=== PATIENT | male | born 1955 | race Caucasian/White ===

== ENCOUNTER 2017-10-07 09:11 | Day surgery (SDC) | payer BC ==
[~2017-10-07 09:11] MED LIST: Bactrim Ds Tab1 EACH PO; CEPH500 PO; NAPR500 PO; Rapaflo8 MG PO
[2017-10-07 10:01] LABS: International Normalized Ratio 1.04; Prothrombin Time Results 10.8 Sec (9.7-11.5)
[2017-10-07 12:38] LABS: Performing Lab VERACYTE; Test Name FNA
[2017-10-10 08:55] LABS: Result SEE SEPARATE REPORT
== END 2017-10-07 23:06 | disposition home or self-care (01) ==
LOC: US 09:11
PROVIDERS: Nurse Practitioner Family; Radiology Diagnostic Radiology
PROC: 0GBH3ZX Excision of Right Thyroid Gland Lobe, Percutaneous Approach, Diagnostic (ICD-10-PCS; principal; 2017-10-07)
DX: D44.0 Neoplasm of uncertain behavior of thyroid gland (principal); E04.2 Nontoxic multinodular goiter
CPT/HCPCS: 10022; 36415; 76942; 85610; 85730

== ENCOUNTER 2018-07-23 07:38 | Day surgery (SDC) | payer BC ==
[~2018-07-23] VITALS: Ht 172.7 cm; Wt 87.6 kg
[~2018-07-23 07:38] MED LIST changes: +ALEVE220 MG; +INSDET100
--- NOTE | 2018-07-23 09:29 | NUR ---
07/23/18 0929 Tisha Farias PT IN PREOP BED LOCKED IN LOWEST POSITION WITH CAKLL LIGHT WITHIN REACH. AT BEDSIDE.
== END 2018-07-23 11:10 | disposition home or self-care (01) ==
LOC: ORSCSDS 07:38
PROVIDERS: Internal Medicine Gastroenterology
PROC: 0DBN8ZX Excision of Sigmoid Colon, Via Natural or Artificial Opening Endoscopic, Diagnostic (ICD-10-PCS; principal; 2018-07-23 09:15)
PROC: 0DBL8ZX Excision of Transverse Colon, Via Natural or Artificial Opening Endoscopic, Diagnostic (ICD-10-PCS; principal; 2018-07-23 09:15)
PROC: 0DBK8ZX Excision of Ascending Colon, Via Natural or Artificial Opening Endoscopic, Diagnostic (ICD-10-PCS; principal; 2018-07-23 09:15)
PROC: 0DBP8ZX Excision of Rectum, Via Natural or Artificial Opening Endoscopic, Diagnostic (ICD-10-PCS; principal; 2018-07-23 09:15)
PROC: 0DBH8ZX Excision of Cecum, Via Natural or Artificial Opening Endoscopic, Diagnostic (ICD-10-PCS; principal; 2018-07-23 09:15)
PROC: 0DBM8ZX Excision of Descending Colon, Via Natural or Artificial Opening Endoscopic, Diagnostic (ICD-10-PCS; principal; 2018-07-23 09:15)
DX: Z12.11 Encounter for screening for malignant neoplasm of colon (principal); D12.0 Benign neoplasm of cecum; D12.2 Benign neoplasm of ascending colon; D12.3 Benign neoplasm of transverse colon; D12.5 Benign neoplasm of sigmoid colon; K64.8 Other hemorrhoids; E11.9 Type 2 diabetes mellitus without complications; Z79.4 Long term (current) use of insulin
CPT/HCPCS: 82947; 88305; J7120

== ENCOUNTER → 2024-05-12 | Outpatient (CLI) | payer MEDICARE | END | disposition home or self-care (01) | LOC: LAB SHORT 18:21 → LAB 18:21 | DX: E11.9 Type 2 diabetes mellitus without complications (principal) | CPT/HCPCS: 82043 ==